=== PATIENT | female | born 1955 | race Caucasian/White ===

== ENCOUNTER 2016-09-21 16:05 | Outpatient (CLI) | payer BC | END 2016-09-21 16:06 | disposition home or self-care (01) | LOC: NAVSJIPCSP 16:05 → NAV LAB 16:06 | DX: E03.9 Hypothyroidism, unspecified (principal) | CPT/HCPCS: 84443 ==

== ENCOUNTER 2019-11-18 10:41 | Outpatient (CLI) | payer OTHER ==
[2019-11-18 10:50] LABS: Bilirubin Negative (Negative); Blood, Urine Large (Negative); Clarity Clear (Clear); Glucose, Urine (Dipstick) Negative (Negative); Ketone, Urine Negative (Negative); Leukocyte Large (Negative); Nitrite Negative (Negative); Protein, Urine (Dipstick) Negative (Neg-Trace); Urobilinogen 0.2 mg/dL (Less than 2)
[2019-11-18 11:06] LABS: Bacteria/HPF 2+ HPF (None Seen); WBC/HPF 21-50 HPF (0-3)
[2019-11-18 11:07] LABS: Other Microscopic Description GLITTER CELLS PRESEN
== END 2019-11-18 10:42 | disposition home or self-care (01) ==
LOC: NAVSJIPCSP 10:41
PROVIDERS: ATTEND Family Medicine
DX: N30.00 Acute cystitis without hematuria (principal)
CPT/HCPCS: 81001; 87077; 87086; 87186

== ENCOUNTER 2021-11-01 21:55 | Emergency (ER) | payer MEDICARE, OTHER ==
[2021-11-01 22:27] LABS: Bilirubin Negative (Negative); Blood, Urine Large (Negative); Clarity Slightly Cloudy (Clear); Glucose, Urine (Dipstick) Negative (Negative); Ketone, Urine Negative (Negative); Leukocyte Small (Negative); Nitrite Negative (Negative); Protein, Urine (Dipstick) 100 mg/dL (Neg-Trace); Specific Gravity, Urine 1.015 (1.005-1.030); Urobilinogen 0.2 mg/dL (Less than 2); pH, Urine 7.5 (5.0-9.0)
[2021-11-01 22:41] LABS: Bacteria/HPF None Seen HPF (None Seen); RBC/HPF Greater than 50 HPF (0-3); Squamous Epithelial None Seen HPF (0-3)
[2021-11-01] MEDS ORDERED: Nitrofurantoin Macrocrystal 50 MG CAP ONE (23:04)
== END 2021-11-01 23:09 | disposition home or self-care (01) ==
LOC: NAV ERS 21:55
DX: N39.0 Urinary tract infection, site not specified (principal); E03.9 Hypothyroidism, unspecified; F17.210 Nicotine dependence, cigarettes, uncomplicated
CPT/HCPCS: 81003; 81015; 87077; 87086; 87186; 99283